=== PATIENT | male | born 1995 | race Caucasian/White ===

== ENCOUNTER 2023-10-21 14:36 | Emergency (ER) | payer SELFPAY ==
[2023-10-21 14:43] VITALS: BP 117/73
[2023-10-21 15:03] LABS: % Basophils 0.3 % (0-2); % Eosinophils 0.5 % (0-6); % Immature Granulocytes 0.2 % (0-0.5); % Lymphocytes 8.1 % (20.5-51.1); % Monocytes 8.3 % (1.7-9.3); % Neutrophils 82.6 % (42.2-75.2); Absolute Eosinophils 0.1 10^3/uL (0-0.7); Absolute Lymphocytes 0.8 10^3/uL (1.2-3.4); Absolute Monocytes 0.8 10^3/uL (0.1-0.6); Absolute Neutrophils 7.7 10^3/uL (1.4-6.5); Hematocrit 41.5 % (39.0-52.0); Hemoglobin 13.8 g/dL (13.0-18.0); Mean Corp Hgb Conc. 33.3 g/dL (33.0-37.0); Mean Corpuscular Hgb 29.9 pg (27.0-31.0); Mean Platelet Volume 9.7 fL (7.4-10.4); Nucleated Red Blood Cells % 0 % (-); Platelet Count 199 10^3/uL (130-400); Red Blood Cell Count 4.61 10^6/uL (4.70-6.10); Red Cell Dist. Width 12.2 % (11.5-14.5); White Blood Cell Count 9.3 10^3/uL (4.8-10.8)
[2023-10-21 15:21] LABS: ALT (SGPT) 32 U/L (0-50); AST (SGOT) 29 U/L (17-59); Albumin 4.8 g/dl (3.5-5.0); Alkaline Phosphatase 64 U/L (38-126); Blood Urea Nitrogen 16 mg/dl (9-20); Calcium 9.4 mg/dl (8.4-10.2); Carbon Dioxide 27 mmol/L (22-30); Chloride 103 mmol/L (98-107); Glucose 104 mg/dl (70-99); Potassium 4.1 mmol/L (3.5-5.1); Sodium 133 mmol/L (135-145); Total Protein 7.1 g/dl (6.3-8.2); eGFR > 60.00
[2023-10-21 15:25] LABS: COVID-19 Antigen Negative (Negative)
--- NOTE | 2023-10-21 17:25 | ED.GENMED ---
History of Present Illness
General
Chief Complaint: Headache
Time Seen by Provider: 10/21/23 17:25
Travel History
Have you had any contact with someone who has COVID-19?: No
Do you have any symptoms of coronavirus? Fever > 100 degrees, chills, cough, shortness of breath, sore throat, loss of taste or smell, muscle aches, or headache?: No
History of Present Illness
History of Present Illness:
HPI: The patient presents with headaches. The headaches have been intermittently occurring over the past 2-week. He tends to notice these more with orgasm. Currently he spontaneously feels improved�he actually wanted to leave just before I saw
him this evening. His onset of symptoms was approximately 5-1/2 hours ago most recently. The patient is not aware of any family history of aneurysm. He does have a history of migraine but he states this is somewhat different.
EXAM:
GENERAL: Well appearing in no distress
HEENT: Moist oral mucosa
CARDIOVASCULAR: No murmurs, normal heart rate, regular rhythm, No chest wall tenderness
PULMONARY: No respiratory distress, breath sounds are clear and equal
ABDOMEN: Soft with no peritoneal signs, no tenderness
NEUROLOGIC: Excellent strength all extremities, no coordination deficits, the patient is walking without difficulty, the patient has a GCS of 15 and NIHSS of 0
PSYCHIATRIC: Appropriate mental status, normal insight and judgement
EXTREMITIES: Nontender, no edema, moves all extremities equally
SKIN: No rash, no lesions
TIME OF INITIAL ENCOUNTER: 5:30 PM
NUMBER AND COMPLEXITY OF PROBLEMS ADDRESSED AT THE ENCOUNTER
� Chronic conditions affecting care: History of migraines
� Acute Exacerbation and/or Progression of Chronic Illness: This is an acute
� Differential Diagnosis includes: Exacerbation of migraine, exertional headache, SAH much less likely
AMOUNT AND/OR COMPLEXITY OF DATA TO BE REVIEWED AND ANALYZED
� I performed an independent evaluation of and my interpretation is:
EKG:
CT: CAT scan of the brain shows no acute abnormality
X-rays:
Laboratory Studies: White count normal 9.3, hemoglobin normal at 13.8, sodium slightly low at 133, COVID-negative
Other:
� Review of other/old records: The patient was seen here in total 17 with a laceration of the hand
� Clinical information was obtained by an independent historian: I spoke to the girlfriend at bedside
� Prescriptions/Medications Considered but not given: Consider medication for migraine over the patient overall feels improved and declines any analgesia currently
� Further testing considered but not performed: See below
RISK OF COMPLICATIONS AND/OR MORBIDITY OR MORTALITY OF PATIENT MANAGEMENT
� Social determinants of health affecting care: Lives at home
� Discussion with other providers:
� Escalation of care including admission/observation vs risk of discharge considered: Patient CT imaging obtained at approximately 6-hour selena of symptom onset. I offered and considered CTA however the patient voiced concerns
about cost as he has no insurance. On reassessment, the patient is well-appearing. CT imaging shows no bleeding. CT imaging was obtained within 6 hours and no intracranial hemorrhage noted therefore highly doubt SAH. Will give contact
information for local neurologist as well.
Past History
Past History
ED Past Medical History: Other (Noncontributory)
ED Past Surgical History: Other (Noncontributory)
Social History
Tobacco: Non-smoker
Personal: Single
Living: with family
Employment: Employed
Phy Exam
Physical Exam
Physical Exam:
See HPI
Course
Orders/Labs/Results
Orders:
Orders
10/21/23 14:52
COVID-19 Antigen Urgent
Source: Nasal Swab
Complete Blood Count/With Diff Urgent
Comprehensive Metabolic Panel Urgent
10/21/23 17:33
CT Head W/o Iv Contrast Urgent
Comment:
Reason For Exam: new severe GONZALEZ
Abnormal Lab Results
10/21/23
14:52
RBC 4.61 L 10^6/uL
(4.70-6.10)
Absolute Neuts (auto) 7.7 H 10^3/uL
(1.4-6.5)
Absolute Lymphs (auto) 0.8 L 10^3/uL
(1.2-3.4)
Absolute Monos (auto) 0.8 H 10^3/uL
(0.1-0.6)
Neutrophils % 82.6 H %
(42.2-75.2)
Lymphocytes % 8.1 L %
(20.5-51.1)
Sodium 133 L mmol/L
(135-145)
Glucose 104 H mg/dl
(70-99)
10/21/23 14:52
10/21/23 14:52
Vital Signs
Initial and Last Documented VS:
Initial Vital Signs
Temp Pulse Resp BP Pulse Ox
98.7 F 65 18 117/73 100
10/21/23 14:43 10/21/23 14:43 10/21/23 14:43 10/21/23 14:43 10/21/23 14:43
Last Documented Vital Signs
Temp Pulse Resp BP Pulse Ox
98.7 F 65 18 117/73 100
10/21/23 14:43 10/21/23 14:43 10/21/23 14:43 10/21/23 14:43 10/21/23 14:43
*Critical Care Note
Total Time (30-74mins, 75-104mins- exclusive of procedures): Not Applicable
ED Attending Note
-
Portions of this chart may have been created with voice recognition software.� Occasional wrong word or��sound alike� substitutions may have occurred due to the inherent limitations of voice recognition software.
Discharge Plan
Departure
Referrals:
NONE,* [Family Provider] -
Interventions
Interventions:
*Risk Screen - Suicide Last Done: 10/21/23 17:35
*General Assessment Last Done: 10/21/23 17:35
*Neglect/Abuse Screening Last Done: 10/21/23 17:35
ED- Fall Risk Assessment Last Done: 10/21/23 17:38
*ED COVID-19 Vaccine History Last Done: 10/21/23 17:35
ED- Neurological Assessment Last Done: 10/21/23 17:37
Discharge Date and Time
Print Language: URDU
== END 2023-10-21 19:03 | disposition home or self-care (01) ==
LOC: EMR 14:36
PROVIDERS: Emergency Medicine; EMERGENCY PHYSICIAN Emergency Medicine
DX: R51.9 Headache, unspecified (principal)
CPT/HCPCS: 99284; 70450; 80053; 85025; 87811